=== PATIENT | male | born 1975 | race Caucasian/White ===

== ENCOUNTER 2016-12-23 11:53 | Emergency (ER) | payer MEDICAID ==
[2016-12-23 12:13] VITALS: PULSE 72; TEMP 98.1; O2SAT 96
[2016-12-23] MEDS ORDERED: LIDOCAINE 5% 1 EA PATCH TD ONE (12:31)
[2016-12-23] MEDS ORDERED: GABAPENTIN 300 MG CAP PO ONE (12:31)
[2016-12-23] MEDS ORDERED: KETOROLAC 15 MG/1 ML SDV IM ONE (12:31)
[2016-12-23] MEDS ORDERED: CYCLOBENZAPRINE 10 MG TAB PO ONE (12:31)
--- NOTE | 2016-12-23 12:35 | EDPHY ---
H & P Time Seen by Provider: 12/23/16 12:07 HPI/ROS: CHIEF COMPLAINT: Back pain HISTORY OF PRESENT ILLNESS: 41-year-old male reports he has long history of intermittent flares of low back pain. He usually seeks care with a chiropractor. He reports increased back pain over the last 4-5 days with no clear exacerbating or relieving factors. He did see a chiropractor on Saturday and had manipulation with minimal improvement in his symptoms. Currently he describes bilateral lower back pain. No radiation of the pain. No numbness or tingling in his legs. No bowel or bladder difficulties. Reports some weakness in the anterior thighs bilaterally. No fevers or chills. No urinary complaints. Patient has not taking any specific medications for the pain. Pain is worse with standing or ambulating. Better when he lays flat or on his side. No fever, chills, chest pain, shortness of breath, palpitations, vomiting, diarrhea, urinary complaints, headache, lightheadedness. REVIEW OF SYSTEMS: Aside from elements discussed in the HPI, a comprehensive 10-point review of systems was reviewed and is negative. PAST MEDICAL HISTORY: Back pain. SOCIAL HISTORY: . No IV drug use. General appearance: Uncomfortable appearing. Moving slowly about the bed. Focused examination of back: No trauma is noted. No tenderness to palpation along the spine. Paraspinous muscle spasm is present. No CVA tenderness. Neurological exam: Straight leg raise test is negative bilaterally. Hip flexion, knee extension, knee flexion, dorsiflexion and plantar flexion are 5/ 5 bilaterally. EHL 5 over 5. Sensation is intact to light touch throughout. 2 + knee and ankle jerk bilaterally. Vascular exam: Dorsalis pedis and posterior tibial pulses are intact. Brisk capillary refill. Smoking Status: Current every day smoker Constitutional: Initial Vital Signs Temperature (C) 36.7 C 12/23/16 12:09 Heart Rate 72 12/23/16 12:09 Respiratory Rate 16 12/23/16 12:09 Blood Pressure 96/54 L 12/23/16 12:09 O2 Sat (%) 96 12/23/16 12:09 O2 Delivery Mode Room Air Allergies/Adverse Reactions: No Known Allergies Allergy (Unverified 12/23/16 12:08) Home Medications: Medication Instructions Recorded Cyclobenzaprine [Flexeril 10 MG 10 mg PO TID PRN #20 tab 12/23/16 (RX)] Medical Decision Making - Diagnostics Imaging Results: Imaging Impressions Lumbar Spine X-Ray 12/23/16 12:32 Impression: Normal limited lumbar spine series. ED Course/Re-evaluation: Patient and his are requesting imaging studies of his back since he has not had any before. We discussed limitations in indications for lumbar spine x- rays. We also discussed MRI. Patient is comfortable with conservative therapy , follow up with the primary care physician, MRI is needed in the future. However, they would like a plain x-ray of the back which was performed. Patient received Toradol IM, Flexeril, and lidocaine patch. He declined Decadron as well as gabapentin. Lumbar spine films are normal with the exception of some straightening of the lumbar spine. On re-examination the patient is starting to feel some improvement in his pain, although meds were administered approximately 15 minutes ago. Plan to discharge with lidocaine patches for pain relief, ibuprofen and Tylenol for pain relief, Flexeril for muscle spasm, ice for anti-inflammatories and spasm. Follow up with primary care physician, patient was given referral to Dr. Mary. Follow up with orthopedic surgeon, patient was given referral to Dr. High. Differential Diagnosis: After history was obtained and physical exam performed, the differential for back pain was considered including but not limited to muscular pain, herniated disc, spine fracture, intra-abdominal causes, and urinary tract infection. - Data Points Medications Given: Discontinued Medications Acetaminophen (Tylenol) 1,000 mg PO EDNOW ONE Stop: 12/23/16 13:38 Last Admin: 12/23/16 13:40 Dose: 1,000 mg Cyclobenzaprine HCl (Flexeril) 10 mg PO EDNOW ONE Stop: 12/23/16 12:32 Last Admin: 12/23/16 13:13 Dose: 10 mg Dexamethasone (Decadron) 8 mg PO EDNOW ONE Stop: 12/23/16 12:40 Last Admin: 12/23/16 13:22 Dose: Not Given Gabapentin (Neurontin) 600 mg PO EDNOW ONE Stop: 12/23/16 12:32 Last Admin: 12/23/16 13:22 Dose: Not Given Ketorolac Tromethamine (Toradol) 30 mg IM EDNOW ONE Stop: 12/23/16 12:32 Last Admin: 12/23/16 13:17 Dose: 30 mg Lidocaine (Lidoderm 5%) 1 ea TD EDNOW ONE Stop: 12/23/16 12:32 Last Admin: 12/23/16 13:20 Dose: 1 ea Departure - Departure Disposition: Home, Routine, Self-Care Clinical Impression: Back pain Qualifiers: Back pain location: low back pain Chronicity: acute Back pain laterality: midline Sciatica presence: without sciatica Qualified Code(s): M54.5 - Low back pain Condition: Good Instructions: Acute Low Back Pain (ED), Lower Back Exercises (ED) Additional Instructions: Musculoskeletal pain is often treated with anti-inflammatories, muscle relaxants , and pain medications. 1. I recommend Ibuprofen (Motrin, Advil) or Naproxen Sodium (Aleve) for pain and anti-inflammatory effects. You may take either one, but do not take both. Your dose is: Ibuprofen 600 mg every 6-8 hours with food. OR Naproxen Sodium (Aleve) 220 mg every 12 hours. 2. For muscle relaxation, you been given a prescription of Flexeril. Please take this as directed. It may make you sleepy. 3. For pain relief, I suggest high-dose Tylenol (650mg-1000mg of Tylenol) up to 3 times a day. Not exceed 3000 mg in a 24 hour period. I also suggest lidocaine patches. 4% lidocaine patches are available over-the- counter. You may also obtain lidocaine patches [id number]. Apply ice for 20-30 minutes every 2-3 hours for the next 48 hours. After 48 hours, a heating pad or hot tub may feel better. Please follow up with your primary care physician if you're not improving as expected in the next several days. You been given referral to Dr. Mary who is a internal medicine physician. You been given referral to Dr. High, orthopedic surgery. Please follow up for further examination and consideration of further testing or imaging studies as needed. Consider physical therapy or chiropractic followup for persistent discomfort. Return to the emergency department if you experience significantly worsening pain, pain radiating into the legs, weakness, numbness or tingling, difficulties with bowel or bladder, fever, nausea, vomiting, or other concerns. Referrals: NONE *PRIMARY CARE P,. [Primary Care Provider] - As per Instructions Yury High MD [Medical Doctor] - As per Instructions Karma Mary MD [[facility] [place] Primary Care Provider] - As per Instructions Prescriptions: Cyclobenzaprine [Flexeril 10 MG (RX)] 10 mg PO TID PRN #20 tab PRN Reason: Muscle Spasms
[2016-12-23] MEDS ORDERED: DEXAMETHASONE 4 MG TAB PO ONE (12:39)
[2016-12-23] MEDS ORDERED: ACETAMINOPHEN 500 MG TAB PO ONE (13:37)
[2016-12-23] MEDS ORDERED: OXYCODONE/APAP 5/325MG PREPACK#4 BTL TAKEHOME ONE (14:03)
[2016-12-23 14:06] VITALS: BP 112/72; RESP 14
[2016-12-23] MEDS ORDERED: PATCH REMOVAL 1 EA PATCH TD SCH (21:00)
== END 2016-12-23 14:20 | disposition home or self-care (01) ==
LOC: CED 11:53
DX: M54.5 Low back pain (principal); F17.200 Nicotine dependence, unspecified, uncomplicated
CPT/HCPCS: 72100-PO; J1885